=== PATIENT | male | born 1995 | race Caucasian/White ===

== ENCOUNTER 2019-06-14 11:24 | Inpatient (IN) | payer BC ==
[2019-06-14] MEDS ORDERED: Iopamidol 500 ML BOTTLE ONE (12:22)
[2019-06-14] MEDS ORDERED: Iopamidol 612 MG/ML 150 ML Bottle IV ONE (12:24)
[2019-06-14] MEDS ORDERED: Sodium Chloride 0.9% 10 ML Syringe FLUSH ONE (12:24)
--- NOTE | 2019-06-14 14:20 | CRLCT ---
Indication: Right lower quadrant pain Technique: Contrast enhanced axial CT imaging through the abdomen and pelvis. 150 mL Isovue-300 contrast agent was administered intravenously. Oral contrast was also administered. Sagittal and coronal reconstructions are provided. Comparison: None Findings: There is diffuse appendiceal wall thickening with surrounding inflammatory stranding, consistent with acute appendicitis. There is no pneumoperitoneum. No organized fluid collection is seen within the abdomen and pelvis. There is mild lymphadenopathy in the right lower quadrant mesentery, presumably reactive. The stomach, small bowel, and colon are unremarkable. There is transit of oral contrast to the rectum. There is no significant abnormality of the liver, gallbladder, spleen, pancreas, adrenal glands, and kidneys. There is normal enhancement of the portal venous system. There is normal caliber of the abdominal aorta. The included lung bases are clear. The visualized osseous structures are unremarkable. Impression: Acute appendicitis. No evidence of perforation or abdominal abscess. Please note that all CT scans at this facility use dose modulation, iterative reconstruction, and/or weight-based dosing when appropriate to reduce radiation dose to as low as reasonably achievable. Dictated by Jessica Kinsey MD @ Jun 14 2019 2:15PM Signed by Dr. Jessica Kinsey @ Jun 14 2019 2:19PM
[2019-06-14] MEDS ORDERED: hydrOXYzine HCl 100 MG/2 ML SDV IM PRN (19:53)
[2019-06-14] MEDS ORDERED: Ondansetron 4 MG/2 ML SDV IVPUSH PRN (20:02)
[2019-06-14] MEDS ORDERED: Cyclobenzaprine 10 MG Tab PO PRN (20:03)
[2019-06-14] MEDS ORDERED: HYDROmorphone 0.5 MG/0.5 ML Syringe IVPUSH PRN (20:07)
[2019-06-14] MEDS ORDERED: Pantoprazole 40 MG Vial IVPUSH SCH (21:00)
[2019-06-14] MEDS: Dextrose 5%-Lactated Ringers 1,000 ML IV SCH (21:02)
[2019-06-14] MEDS: Ampicillin/Sulbactam Na 3 GM in Sodium Chloride 0.9% 100 ML IV SCH (21:41)
[2019-06-14] MEDS ORDERED: Acetaminophen 500 MG Tab PO PRN (22:00)
[2019-06-15] MEDS: Dextrose 5%-Lactated Ringers 1,000 ML IV SCH (03:09)
[2019-06-15] MEDS: Ampicillin/Sulbactam Na 3 GM in Sodium Chloride 0.9% 100 ML IV SCH ×4 (04:23→21:37)
[2019-06-15] MEDS: Acetaminophen 500 MG Tab PO SCH ×4 (04:24→21:21)
[2019-06-15] MEDS ORDERED: HYDROmorphone 1 MG/ML Syringe IV PRN (07:29)
[2019-06-15] MEDS ORDERED: Dextrose 5%-Lactated Ringers 1,000 ML IV SCH (07:30)
[2019-06-15] MEDS: Bisacodyl 5 MG Tab PO SCH ×2 (09:51→21:20)
[2019-06-15] MEDS: Docusate Sodium 100 MG Cap PO SCH ×2 (09:51→21:20)
--- NOTE | 2019-06-15 10:19 | PN ---
DATE OF SERVICE: 06/15/2019 SUBJECTIVE: Loyd is postop day 1. His vital signs have been stable. He has been up ambulating. Pain has been controlled. REVIEW OF SYSTEMS: Remainder of review of systems negative for any pertinent positives and negatives. OBJECTIVE: GENERAL: Loyd Obrien is a 24-year-old male. He is alert and orientated. VITAL SIGNS: TPR 98.3, 70, 12, blood pressure 108/63. HEENT: Negative. NECK: Supple. HEART: Regular rate and rhythm. LUNGS: Clear. ABDOMEN: Dressing dry and intact. Abdominal binder is on. PANTERA drain put out 25 mL of a light pink drainage. EXTREMITIES: Without peripheral edema. ASSESSMENT: Laparoscopic appendectomy. PLAN: Tylenol 1000 mg every 6 hours scheduled for pain, Dulcolax 10 mg p.o. b.i.d., D5LR at 100 mL/hour, Colace 100 mg p.o. b.i.d., Dilaudid 1 mg every 2 hours p.r.n. pain, Protonix 40 mg p.o. at bedtime. Full liquid diet for breakfast, advance to regular at noon. May shower. Good pulmonary toilet. We will evaluate p.r.n. or in a.m. Caitlyn Brand PA-C /[id number]
[2019-06-15] MEDS ORDERED: Pantoprazole 40 MG Tab.CR PO SCH (21:00)
[2019-06-16] MEDS: Ampicillin/Sulbactam Na 3 GM in Sodium Chloride 0.9% 100 ML IV SCH (04:08)
[2019-06-16] MEDS: Acetaminophen 500 MG Tab PO SCH (04:08)
--- NOTE | 2019-06-18 10:45 | OR ---
DATE OF PROCEDURE: 06/14/2019 SURGEON: Frandy Montez MD PREOPERATIVE DIAGNOSIS: Acute appendicitis. POSTOPERATIVE DIAGNOSIS: Acute appendicitis, likely complicated by microperforation with periappendiceal abscess. OPERATIVE PROCEDURE: Diagnostic laparoscopy with appendectomy and drainage of periappendiceal abscess (20271). ANESTHESIA: General. INDICATION FOR PROCEDURE: This is a 24-year-old presenting with a 24-hour history of lower abdominal pain. Workup included a CT scan which was consistent with an acute appendicitis. Plan is to proceed with diagnostic laparoscopy, laparotomy if necessary, and appendectomy with other procedures as indicated. Potential risks including bleeding, infection, leaks from GI tract closures such as appendectomy stump, as well as possibility of cardiopulmonary, septic, or hemorrhagic complications leading to were discussed, and the patient wishes to proceed. DETAILS OF PROCEDURE: The patient was taken to the operating room and placed in a supine position. After general endotracheal anesthesia was induced, a Ashley catheter was inserted, which was removed at the end of the procedure. The abdomen was then prepped and draped. Three fingerbreadths superior and to the left of the umbilicus, a transverse incision was made and the peritoneal cavity entered under direct vision with an Optiview trocar, inflated to 15 mmHg of CO2. Laparoscope was then reinserted. No underlying trocar insertion site injuries were seen. Following this, 12 mm trocars were placed in the left lower quadrant and right upper quadrant, and the lower abdomen examined. I was trying to pull back some omentum which was over the area of the cecum, roughly 10 mL of purulence was encountered consistent with periappendiceal abscess. Appendix was then mobilized upward. It did appear to have some full-thickness necrosis and the periappendiceal abscess likely associated with microperforation. Appendix was then freed up after division of the mesoappendix with Harmonic scalpel, and once the appendix was taken down, there was a soft base in adjacent cecum, the junction of the appendix and cecum were then divided with a KATHARINE purple load. Specimen was then placed in a specimen bag and retrieved through the left lower quadrant trocar site. At this point, no further problems were noted. It appeared we had hemostasis and the staple line appeared to be intact. A Denny-Fontanez drain was taken out through a small stab wound in the right flank and draped across the appendectomy site as well as the abscess location, and from there into the pelvis. The trocars were then sequentially removed. Fascia at the trocar sites was closed with 0 Vicryl stitch and the skin with 4-0 Vicryl skin stitch, which was also used to fix the drain. The patient was taken to the recovery room in satisfactory condition. There were no evident complications. rFandy Montez MD /[id number]
--- NOTE | 2019-06-18 13:49 | DISCH ---
CORRECTED REPORT FINAL DIAGNOSES: Acute appendicitis with likely microperforation and periappendiceal abscess. OPERATIVE PROCEDURE: Diagnostic laparoscopy with appendectomy and drainage of periappendiceal abscess, that was done on 06/14/2019. HOSPITAL COURSE: This is a 24-year-old male presenting with a picture of acute appendicitis. After workup, including CAT scan, he appeared to have appendicitis and underwent preoperative antibiotic preparation and laparoscopic appendectomy. Did have a purulent collection of a few mL around the appendix and probably had an area of microperforation. The pathology on the appendix is pending. At this point, he has been requiring only Tylenol for pain. Will have his PANTERA drain removed, which is now clear. He has moved his bowels. He will go over to regular diet. He will follow up with Dr. Montez at [facility] on 06/27/2019. The only additional medication from his usual will be Tylenol as needed for pain. SMITA
== END 2019-06-16 08:15 | disposition home or self-care (01) | DRG 225 ==
LOC: JP.SDSSCHI 11:24 → JP.CT 11:24 → EDSTATUS 12:45 → JP.ICU 18:20
PROVIDERS: ADMIT Surgery; ATTEND Surgery
PROC: 0DTJ4ZZ Resection of Appendix, Percutaneous Endoscopic Approach (ICD-10-PCS; principal; 2019-06-14)
DX: K35.33 Acute appendicitis with perforation, localized peritonitis, and gangrene, with abscess (principal); E66.9 Obesity, unspecified; Z68.41 Body mass index [BMI] 40.0-44.9, adult
CPT/HCPCS: 74177; 94762; A9270-GY; C9113; J0295; J7030; J7042; Q9967